=== PATIENT | female | born 1985 | race Caucasian/White ===

== ENCOUNTER 2021-04-05 07:18 | Inpatient (IN) ==
[2021-04-05] MEDS ORDERED: ONDANSETRON 4 MG/2 ML VIAL IV PRN (07:58)
[2021-04-05] MEDS ORDERED: BUTORPHANOL 2 MG/ML VIAL IV PRN (07:58)
[2021-04-05] MEDS ORDERED: MEPERIDINE 50 MG/1 ML VIAL IV PRN (07:58)
[2021-04-05] MEDS ORDERED: OXYTOCIN/LR 20 UNIT/1,000 ML BAG IV SCH (08:00)
[2021-04-05 08:15] LABS: Basophils # 0.1 10*3/uL (0.0-0.2); Basophils % 0.6 % (0.0-0.8); Eosinophils # 0.3 10*3/uL (0.0-0.87); Hemoglobin 11.8 GM/DL (12.0-16.0); Immature Granulocytes % 2.3 %; Immature Granulocytes Absolute 0.26 #; Lymphocytes % 17.6 % (21.3-54.2); Mean Corpuscular HGB Conc 32.8 GM/DL (32-36); Mean Corpuscular Volume 88.2 FL (87-102); Mean Platelet Volume 11.4 FL (9.6-12.0); Monocytes % 7.6 % (1.7-12.7); Neutrophils % 68.9 % (38.7-73.9); Platelet Count 273 T/CUMM (130-400); Red Blood Count 4.08 MC/CUMM (3.8-5.5); Red Cell Distribution Width 14.9 % (9.3-17.3); White Blood Count 11.4 T/CUMM (4-12)
[2021-04-05] MEDS: LACTATED RINGERS 1,000 ML IV SCH ×4 (08:24→22:12)
[2021-04-05] MEDS ORDERED: PROMETHAZINE 25 MG/1 ML VIAL IM PRN (19:35)
[2021-04-05] MEDS ORDERED: FAMOTIDINE 20 MG/2 ML VIAL IV ONE (19:35)
[2021-04-05] MEDS ORDERED: CITRIC ACID/SODIUM CITRATE 30 ML UDCUP PO ONE (19:35)
[2021-04-05] MEDS ORDERED: diphenhydrAMINE 50 MG/1 ML VIAL IV PRN (19:35)
[2021-04-05] MEDS ORDERED: NALOXONE 0.4 MG/ML VIAL IV PRN (19:35)
[2021-04-05] MEDS ORDERED: hydrOXYzine HCL 25 MG/1 ML VIAL IM PRN (19:35)
[2021-04-05] MEDS ORDERED: fentaNYL 2 MCG/ROPIV 0.2% EPID 100 ML EPIDURAL SCH (20:00)
[2021-04-05] MEDS: ePHEDrine 50 MG/ML VIAL IV PRN ×2 (21:49→21:53)
[2021-04-06] MEDS ORDERED: CARBOPROST TROMETHAMINE 250 MCG/ML AMP IM PRN (01:56)
[2021-04-06] MEDS ORDERED: METHYLERGONOVINE 0.2 MG/1 ML AMP IM PRN (01:56)
[2021-04-06] MEDS ORDERED: miSOPROStoL 200 MCG TABLET VAG PRN (01:56)
[2021-04-06] MEDS ORDERED: TRANEXAMIC ACID 1,000 MG/10 ML VIAL ONE (02:11)
[2021-04-06] MEDS ORDERED: LIDOCAINE 1% 50 ML VIAL ONE (02:12)
[2021-04-06] MEDS ORDERED: TRANEXAMIC ACID 1,000 MG in SODIUM CHLORIDE 0.9% 100 ML IV PRN (03:00)
[2021-04-06 03:35] LABS: Cord Arterial Blood HCO3 16.6 MMOL/L
[2021-04-06] MEDS ORDERED: OXYTOCIN/LR 20 UNIT/1,000 ML BAG IV ONE (03:37)
[2021-04-06] MEDS ORDERED: MEASLES/MUMPS/RUBELLA VACCINE 0.5 ML VIAL SUBCUT ONE (03:37)
[2021-04-06] MEDS ORDERED: oxyCODONE/ACETAMINOPHEN 5-325 MG TABLET PO PRN (03:37)
[2021-04-06] MEDS ORDERED: HYDROCORTISONE 2.5% RECTAL CREAM 30 GM TUBE TOP PRN (03:37)
[2021-04-06] MEDS ORDERED: BISACODYL 10 MG SUPP RECTAL PRN (03:37)
[2021-04-06] MEDS ORDERED: BENZOCAINE 20%/MENTHOL 0.5% SPRAY 56 GM CAN TOP PRN (03:37)
[2021-04-06] MEDS ORDERED: ACETAMINOPHEN 325 MG TABLET PO PRN (03:37)
[2021-04-06] MEDS ORDERED: LANOLIN 50% CREAM 0.3 OZ TUBE TOP PRN (03:37)
[2021-04-06] MEDS ORDERED: WITCH HAZEL PADS 100/JAR TOP PRN (03:37)
[2021-04-06 03:38] LABS: Cord Venous Blood HCO3 18.5 MMOL/L; Cord Venous Blood PCO2 60.1 MMHG; Cord Venous Blood PO2 < 17
[2021-04-06 06:41] LABS: Basophils % 0.2 % (0.0-0.8); Eosinophils # 0.1 10*3/uL (0.0-0.87); Eosinophils % 0.3 % (0.00-10.9); Hematocrit 34.7 VOL% (35.7-47.0); Hemoglobin 11.5 GM/DL (12.0-16.0); Immature Granulocytes % 0.8 %; Immature Granulocytes Absolute 0.15 #; Lymphocytes # 1.3 10*3/uL (1.4-4.0); Mean Corpuscular HGB Conc 33.1 GM/DL (32-36); Mean Corpuscular Volume 85.9 FL (87-102); Mean Platelet Volume 11.3 FL (9.6-12.0); Monocytes % 7.1 % (1.7-12.7); Neutrophils % 84.6 % (38.7-73.9); Platelet Count 263 T/CUMM (130-400); Red Blood Count 4.04 MC/CUMM (3.8-5.5); Red Cell Distribution Width 15.2 % (9.3-17.3); White Blood Count 18.9 T/CUMM (4-12)
[2021-04-06] MEDS: DOCUSATE SODIUM 100 MG CAPSULE PO SCH ×2 (08:21→21:17)
[2021-04-06] MEDS: IBUPROFEN 800 MG TABLET PO PRN ×2 (08:27→16:21)
[2021-04-06] MEDS: oxyCODONE/ACETAMINOPHEN 5-325 MG TABLET PO PRN ×2 (16:20→21:22)
[2021-04-07] MEDS: IBUPROFEN 800 MG TABLET PO PRN ×3 (01:06→15:06)
[2021-04-07 05:46] LABS: Basophils % 0.4 % (0.0-0.8); Eosinophils # 0.4 10*3/uL (0.0-0.87); Eosinophils % 3.8 % (0.00-10.9); Hematocrit 33.1 VOL% (35.7-47.0); Hemoglobin 10.5 GM/DL (12.0-16.0); Immature Granulocytes % 1.6 %; Immature Granulocytes Absolute 0.17 #; Lymphocytes # 2.5 10*3/uL (1.4-4.0); Lymphocytes % 23.8 % (21.3-54.2); Mean Corpuscular HGB Conc 31.7 GM/DL (32-36); Mean Corpuscular Volume 88.7 FL (87-102); Mean Platelet Volume 11.4 FL (9.6-12.0); Monocytes % 10.4 % (1.7-12.7); Platelet Count 231 T/CUMM (130-400); Red Blood Count 3.73 MC/CUMM (3.8-5.5); Red Cell Distribution Width 15.7 % (9.3-17.3); White Blood Count 10.6 T/CUMM (4-12)
[2021-04-07] MEDS: oxyCODONE/ACETAMINOPHEN 5-325 MG TABLET PO PRN ×2 (06:17→11:34)
[2021-04-07] MEDS: DOCUSATE SODIUM 100 MG CAPSULE PO SCH (07:31)
[2021-04-07 08:10] VITALS: BP 102/59
[2021-04-07] MEDS ORDERED: valACYclovir 500 MG TABLET PO SCH (09:00)
[2021-04-07] MEDS ORDERED: ONDANSETRON 4 MG TABLET PO ONE (15:01)
== END 2021-04-07 16:30 | disposition home or self-care (01) | DRG 560 ==
LOC: N.LD 07:18 → N.OB 04-06 07:56
PROVIDERS: ADMIT Obstetrics & Gynecology; ATTEND Obstetrics & Gynecology